=== PATIENT | female | born 1980 | race Caucasian/White ===

== ENCOUNTER 2018-08-17 17:48 | Emergency (ER) | payer BC, OTHER ==
[~2018-08-17] VITALS: Ht 167.6 cm; Wt 83.6 kg
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
[2018-08-17 21:14] VITALS: BP 131/79
== END 2018-08-17 21:16 | disposition home or self-care (01) ==
LOC: M ED 17:48
DX: O9A.211 Injury, poisoning and certain other consequences of external causes complicating pregnancy, first trimester (principal); R10.30 Lower abdominal pain, unspecified; V47.5XXA Car driver injured in collision with fixed or stationary object in traffic accident, initial encounter; Y92.410 Unspecified street and highway as the place of occurrence of the external cause; Z91.030 Bee allergy status; Z3A.10 10 weeks gestation of pregnancy

== ENCOUNTER → 2018-10-13 | Outpatient (CLI) | payer BC ==
--- NOTE | 2018-10-14 03:39 | REP ---
Clinical: Anatomical evaluation. Comparison: None . Findings: Examination demonstrates a single live intrauterine in cephalic presentation. motion is identified by technologist. Placenta is noted posterior and grade grade zero without evidence for placenta previa or abruption. Amniotic fluid volume is normal. Cervix measures 3.2 cm in length and appears closed. No evidence for nuchal cord. Gestational age by LMP 18 weeks 5 days with AG 03/11/2019 . Gestational age by current measurements 19 weeks 2 days with AG 03/07/2019 . FHR equals 147 beats per minute. BPD 4.4 cm 19 weeks 3 days HC 16.1 cm 19 weeks 0 days AC 14.2 cm 19 weeks 4 days FL 3.0 cm 19 weeks 2 days HL 2.9 cm 19 weeks 3 days HC/AC ratio 1.14 Estimated weight 290 grams ( 73rd percentile). Anatomical assessment demonstrates normal structures including cranium, choroid plexus, cavum, cerebellum/posterior fossa, lungs, four-chamber heart, diaphragm, stomach, cord insertion/three-vessel cord, kidneys/bladder, and spine. Limited evaluation of the facial features, cardiac ventricular outflow tracts, and extremities due to positioning. Impression: 1. Single live intrauterine in cephalic presentation demonstrating appropriate interval growth. 2. Anatomical limitations as described above may warrant reevaluation and follow-up. Electronically Signed by Juanpablo Schafer MD 10/14/2018 03:30 A
== END ==
LOC: M RAD 14:24
PROVIDERS: ATTEND Advanced Practice Midwife
DX: O09.522 Supervision of elderly multigravida, second trimester (principal); Z3A.19 19 weeks gestation of pregnancy

== ENCOUNTER → 2018-11-11 | Outpatient (CLI) | payer BC ==
--- NOTE | 2018-11-11 15:30 | REP ---
OB ULTRASOUND: Real-time sonographic evaluation of the gravid uterus performed. There is a single living intrauterine gestation, estimated gestational age 22 weeks 6 days, EDC 03/11/2019. Today's measurements indicate appropriate growth. BPD 56 mm = 23 weeks 1 day, 57th percentile HC 206 mm = 22 weeks 5 days, 45th percentile AC 187 mm = 23 weeks 3 days, 63rd percentile FL 43 mm = 24 week 0 days, 75th percentile HC/AC ratio 1.10, within normal range. Estimated weight 612 grams, 68th percentile. heart rate 143 beats per minute. SEEN/GROSSLY UNREMARKABLE Lateral ventricles yes Posterior fossa yes Upper lip yes Four-chamber heart yes LVOT yes RVOT yes Stomach yes Cord insertion yes Three vessel cord yes Kidneys yes Bladder yes Spine yes Cervix: Closed and measures 4.7 cm in length. position: Transverse with head toward the maternal right side. Placenta: Posterior and to the left, grade 0 with no previa or abruption. Amniotic fluid: Within normal limits. Electronically Signed by Jw Avery MD 11/11/2018 04:00 P
== END ==
LOC: M RAD 13:51
PROVIDERS: ATTEND Specialist
DX: O09.522 Supervision of elderly multigravida, second trimester (principal); Z3A.22 22 weeks gestation of pregnancy

== ENCOUNTER → 2018-12-30 | Outpatient (REF) | payer BC | LOC: M LAB REF 17:36 | PROVIDERS: ATTEND Advanced Practice Midwife | DX: O09.522 Supervision of elderly multigravida, second trimester (principal) ==

== ENCOUNTER → 2018-12-30 | Outpatient (CLI) | payer BC | LOC: M SMT 13:27 | PROVIDERS: ATTEND Advanced Practice Midwife | DX: O09.522 Supervision of elderly multigravida, second trimester (principal) | CPT/HCPCS: 36415; 86850; 86870; 86901; J2790 ==

== ENCOUNTER → 2019-01-14 | Outpatient (CLI) | payer BC | LOC: M SMT 14:43 | PROVIDERS: ATTEND Advanced Practice Midwife | DX: O36.0130 Maternal care for anti-D [Rh] antibodies, third trimester, not applicable or unspecified (principal) ==

== ENCOUNTER → 2019-01-28 | Outpatient (CLI) | payer BC | LOC: M SMT 13:57 | PROVIDERS: ATTEND Advanced Practice Midwife | DX: O09.523 Supervision of elderly multigravida, third trimester (principal); Z3A.00 Weeks of gestation of pregnancy not specified ==

== ENCOUNTER → 2019-02-11 | Outpatient (REF) | payer BC | LOC: M LAB REF 16:55 | PROVIDERS: ATTEND Advanced Practice Midwife | DX: O09.523 Supervision of elderly multigravida, third trimester (principal); Z3A.00 Weeks of gestation of pregnancy not specified ==

== ENCOUNTER 2019-02-24 08:52 | Inpatient (IN) | payer BC ==
[~2019-02-24] VITALS: Ht 167.6 cm; Wt 100.6 kg
[2019-02-24 09:16] VITALS: BP 120/64
[2019-02-24] MEDS ORDERED: PRENTAB9 PO (09:21)
[2019-02-24] MEDS ORDERED: OMEP1CAP93 PO (09:21)
[2019-02-24] MEDS ORDERED: miSOPROStol 50 MCG 1/2 TAB (S0191) PO ONE (10:45)
--- NOTE | 2019-02-24 11:18 | HPE ---
DATE OF ADMISSION: 02/24/2019 Amara is a 38-year-old 3, para 2-0-0-2 at 37 6/7 weeks gestation, estimated date of confinement (EDC) 03/11/2019 based in last menstrual period and confirmed by first trimester ultrasound. She presents to labor and delivery today with report of spontaneous rupture of membranes with clear fluid at approximately 0530. She does report some cramping contractions starting very shortly thereafter. She does report positive bloody show and the fetus has been active. Her care was initiated at [facility] in the first trimester. Her course complicated by advanced maternal age. She did decline genetic serum screening labs. OBSTETRIC HISTORY: May 1998, 40 weeks gestation, 3-mimix-63-ounce male vaginal delivery. June 2001, 41 5/7 weeks gestation, 0-egbgi-34-ounce female, vaginal delivery. OBSTETRIC LABS: O negative. Recent antibody screen and anti-D. Varicella equivocal, rubella immune, VDRL nonreactive. Urine culture no growth. Hepatitis B surface antigen negative. HIV negative. Hepatitis C nonreactive. Gonorrhea, Chlamydia negative. Declined genetic serum screening labs. Gestational diabetic screening normal at 100 and her GBS is negative. PAST MEDICAL HISTORY: Childhood varicella. Abnormal Pap smear. PAST SURGICAL HISTORY: Colposcopy. Loop electrosurgical excision procedure (LEEP) 15 years ago. All of her Paps have been normal following the LEEP. FAMILY HISTORY: Diabetes, depression, suicide. SOCIAL HISTORY: The patient is single, however, her significant other is present and supportive as well as other family members. She is a nonsmoker. Denies alcohol and drug use. No history of any reported sexually transmitted infections and denies history of abuse, physical, sexual and emotional. ALLERGIES: No known drug allergies. Bees. CURRENT MEDICATIONS: - omeprazole - docusate sodium - Anusol - ferrous gluconate - vitamin OBJECTIVE: Temperature 99.2, pulse 82, respirations 18, blood pressure 120/64. She is alert and oriented times three. She has some mild discomfort with her cramping. heart rate is 140 with moderate variability. Positive accelerations, negative decelerations. Contractions are irregular and palpate mild. Sterile speculum exam: Positive Valsalva. Positive pooling and positive fern. Sterile vaginal exam: Synciput, 100% effaced, -3 station, positive bloody show. Abdomen is gravid, cephalic presentation. Estimated weight 7 pounds. ASSESSMENT: Intrauterine at 37 6/7 weeks. heart rate category 1, premature rupture of membranes. PLAN: Admit patient to labor and delivery. Routine labs. Out of bed ad. Griselda. Regular diet at this time. One dose of Misoprostol 50 mcg by mouth for cervical ripening. The patient desires an epidural when she is in active labor. I will likely start IV Pitocin for labor induction following 1 dose of Misoprostol. Patient and her family had their questions answered and are in agreement to this plan.
[2019-02-24] MEDS ORDERED: LR 1,000 ML IV SCH (11:34)
[2019-02-24 11:43] LABS: HEMATOCRIT 30.8 % (36.0-47.0); HEMOGLOBIN 9.5 g/dl (12.0-15.5); MEAN CORPUSCULAR HEMOGLOBIN 24.4 pg (27.0-33.0); MEAN CORPUSCULAR HGB CONC 30.8 g/dl (32.0-36.5); PLATELET COUNT, AUTOMATED 256 10^3/uL (150-450); WHITE BLOOD COUNT 14.5 10^3/uL (4.0-10.0)
[2019-02-24] MEDS ORDERED: OXYTOCIN DRIP 30 UNITS in APPROPRIATE DILUENT 1 EA IV SCH ×2 (11:45→17:16)
[2019-02-24] MEDS ORDERED: FENTANYL 2MCG/ML ROPIVACAINE 0.2% IN 0.9% NACL 100ML IVBAG As Ordered ONE (13:06)
[2019-02-24] MEDS ORDERED: ePHEDrine SULFATE 25 MG/5 ML(5MG/ML) SYRINGE As Ordered ONE (14:24)
[2019-02-24] MEDS ORDERED: diphenhydrAMINE INJ 50MG/ML VIAL (J1200) IV PRN (14:45)
[2019-02-24] MEDS ORDERED: NALOXONE INJ 0.4 MG/1 ML VIAL (J2310) IV PRN (14:45)
[2019-02-24] MEDS ORDERED: ONDANSETRON 4MG/2ML VIAL (J2405) IV PRN (14:45)
[2019-02-24] MEDS ORDERED: REFRIGERATOR IV KEYS XX PRN (14:45)
[2019-02-24] MEDS ORDERED: EPIDURAL/PCA KEYS XX PRN (14:45)
[2019-02-24] MEDS ORDERED: FENTANYL/ROPIVACAINE/NACL BAG 100 ML EPIDURAL SCH (14:45)
[2019-02-24] MEDS ORDERED: EPIDURAL COMMENT XX SCH (14:45)
[2019-02-24] MEDS ORDERED: ePHEDrine SULFATE 25 MG/5 ML(5MG/ML) SYRINGE IV PRN (14:45)
[2019-02-24] MEDS ORDERED: OXYTOCIN 30 UNITS IN 0.9% NaCl 500ML IV BAG (J2590) As Ordered ONE (16:35)
[2019-02-24] MEDS ORDERED: IBUPROFEN 600 MG TAB PO PRN (17:30)
[2019-02-24] MEDS ORDERED: ACETAMINOPHEN TAB 650MG DOSE (2X325MG) PO PRN (17:30)
[2019-02-24] MEDS ORDERED: DOCUSATE SODIUM 100 MG CAP PO PRN (17:30)
[2019-02-24] MEDS ORDERED: ANUSOL HC CREAM 30GM TOP PRN (17:30)
[2019-02-24] MEDS ORDERED: RHOGAM 300 MCG (1500 IU) INJ (J2790) IM SCH (17:30)
[2019-02-24] MEDS ORDERED: ACETAMINOPHEN 500 MG TAB PO PRN (17:30)
[2019-02-24] MEDS ORDERED: METHYLERGONOVINE MALEATE 0.2 MG TAB PO PRN (17:30)
[2019-02-24] MEDS ORDERED: DIBUCAINE 1% OINTMENT 30GM TOP PRN (17:30)
[2019-02-24] MEDS ORDERED: MEASLES,MUMPS,RUBELLA VACCINE INJ (MMR-II) (90707) SC SCH (17:30)
--- NOTE | 2019-02-24 18:30 | DN ---
DATE: 02/24/2019 Amara is a 38-year-old 3, para 3-0-0-3 now who was admitted to labor and delivery with spontaneous rupture of membranes in active labor. She reached complete dilation at 1450, passive descent was utilized. She pushed with two contractions and delivered a live male in occiput anterior (OA) position with restitution to right occiput transverse (ROT) position at 1633. shoulders delivered spontaneously and the corpus immediately followed. He was placed on the maternal abdomen crying and active. Mouth and nares were bulb suctioned. The cord was clamped times two once pulsations ceased and cut by the father of the baby under my direction. Cord blood was obtained. A manual removal of an intact placenta with three-vessel cord by Diaz mechanism was at 1649, inspected and intact. All cotyledons noted. Uterine hemostasis was achieved with IV Pitocin rapid infusion and uterine fundal massage. Estimated blood loss 350 mL. Perineum and vagina were inspected and noted to have a first-degree small perineal laceration. The laceration was repaired with 3-0 Rapide in the usual fashion. The male weighed 3320 grams, 7 pounds, 5 ounces, scores 9 and 9. Mother is going to breastfeed her son and the family have named him Sterling. At the close of delivery, lap counts, needle counts, and instrument counts were correct and verified.
[2019-02-24 20:00] VITALS: BP 140/80
[2019-02-24] MEDS: IBUPROFEN 800 MG TAB PO PRN (21:32)
[2019-02-25] MEDS: IBUPROFEN 800 MG TAB PO PRN ×2 (05:17→20:01)
[2019-02-25 06:20] VITALS: BP 142/78
--- NOTE | 2019-02-25 07:23 | IPNPDOC ---
Text Note Date of Service The patient was seen on 02/25/19. NOTE Day 1 s/p ; uncomplicated S: pain adequately controlled, lochia and bleeding decreasing, voiding spontaneously, ambulating without assistance, tolerating regular diet. O: vitals stable Heart: RRR, no murmurs Lungs: CTA bilaterally Abd: Fundus firm @ U-2 Ext: no edema, nontender, negative Giovanny's bilaterally A/P: 38 yo G3 now P3. day 1 s/p . Hemodynamically stable, afebrile, adequate pain control. Recovering well. -Routine care and advancement. -Anticipate discharge tomorrow VS,Fishbone, I+O VS, Fishbone, I+O Laboratory Tests 02/24/19 11:29 Red Blood Count 3.90 L, Mean Corpuscular Volume 79.0 L, Mean Corpuscular Hemoglobin 24.4 L, Mean Corpuscular Hemoglobin Concent 30.8 L, Red Cell Distribution Width 14.9 H Vital Signs Date Time Temp Pulse Resp B/P (MAP) Pulse Ox O2 Delivery O2 Flow Rate FiO2 02/25/19 06:20 97.4 77 16 142/78 (99) 02/24/19 20:00 96 I&O- Last 24 Hours up to 6 AM 02/25/19 06:00 Output Total 1200 ml Balance -1200 ml GME ATTESTATION GME ATTESTATION My faculty preceptor for this patient encounter was physically present during the encounter and was fully available. All aspects of the patient interview, examination, medical decision making process, and medical care plan development were reviewed and approved by the faculty preceptor. The faculty preceptor is aware and concurs with the plan as stated in the body of this note and will att est to such by his/her cosignature. MARIBELL LAU DO Feb 25, 2019 07:23
[2019-02-25] MEDS: PRENATAL VITAMINS CHEWABLE TABLET PO SCH (08:00)
[2019-02-25 18:02] VITALS: BP 140/85
[2019-02-26 05:30] VITALS: BP 146/87
[2019-02-26] MEDS: IBUPROFEN 800 MG TAB PO PRN (05:33)
[2019-02-26] MEDS: PRENATAL VITAMINS CHEWABLE TABLET PO SCH (07:29)
== END 2019-02-26 11:30 | disposition home or self-care (01) | DRG 560 ==
LOC: M LDO 08:52 → M LDI 10:19 → M PED 19:44
PROVIDERS: ADMIT Advanced Practice Midwife; ATTEND Advanced Practice Midwife
PROC: 10E0XZZ Delivery of Products of Conception, External Approach (ICD-10-PCS; principal; 2019-02-24)
PROC: 0HQ9XZZ Repair Perineum Skin, External Approach (ICD-10-PCS; 2019-02-24)
DX: O42.02 Full-term premature rupture of membranes, onset of labor within 24 hours of rupture (principal); Z3A.37 37 weeks gestation of pregnancy; Z37.0 Single live birth; O70.0 First degree perineal laceration during delivery

== ENCOUNTER → 2019-12-07 | Outpatient (REF) | payer BC ==
[~2019-12-07] MED LIST: OMEP1CAP93 PO; PRENTAB9 PO
== END ==
LOC: M SFHCWAGY 17:47
PROVIDERS: ATTEND Advanced Practice Midwife
DX: Z12.4 Encounter for screening for malignant neoplasm of cervix (principal)
CPT/HCPCS: 87624; G0123

== ENCOUNTER → 2021-07-10 | Outpatient (REF) | payer BC | LOC: M SFHCWAGY 16:52 | PROVIDERS: ATTEND Advanced Practice Midwife | DX: Z12.4 Encounter for screening for malignant neoplasm of cervix (principal) | CPT/HCPCS: 87624; G0123 ==

== ENCOUNTER → 2023-01-30 | Outpatient (CLI) | payer BC | LOC: M PLALAB 10:28 | PROVIDERS: ATTEND Nurse Practitioner Family | DX: Z01.419 Encounter for gynecological examination (general) (routine) without abnormal findings (principal) ==

== ENCOUNTER → 2024-01-26 | Outpatient (CLI) | payer BC | LOC: M WHC 09:15 | PROVIDERS: ATTEND Nurse Practitioner Family | DX: Z12.31 Encounter for screening mammogram for malignant neoplasm of breast (principal); N63.21 Unspecified lump in the left breast, upper outer quadrant ==

== ENCOUNTER → 2024-01-26 | Outpatient (REF) | payer BC | LOC: M SFHCWAGY 15:23 | PROVIDERS: ATTEND Nurse Practitioner Family | DX: Z12.4 Encounter for screening for malignant neoplasm of cervix (principal); Z11.51 Encounter for screening for human papillomavirus (HPV) | CPT/HCPCS: 87624; G0123 ==

== ENCOUNTER → 2024-03-02 | Outpatient (CLI) | payer BC | LOC: M WHC 12:43 | PROVIDERS: ATTEND Nurse Practitioner Family | DX: Z12.31 Encounter for screening mammogram for malignant neoplasm of breast (principal); N63.21 Unspecified lump in the left breast, upper outer quadrant | CPT/HCPCS: 76642; 77065; G0279 ==

== ENCOUNTER → 2025-01-26 | Outpatient (CLI) | payer BC | LOC: M WHC 09:59 | PROVIDERS: ATTEND Nurse Practitioner Family | DX: R92.8 Other abnormal and inconclusive findings on diagnostic imaging of breast (principal) | CPT/HCPCS: 77066; G0279 ==